=== PATIENT | male | born 1980 | race Caucasian/White ===

== ENCOUNTER 2020-08-25 10:00 | Emergency (ER) | payer SELFPAY ==
[~2020-08-25] VITALS: Ht 172.7 cm; Wt 102.1 kg
[~2020-08-25 10:00] MED LIST: ASPIRIN
[2020-08-25 10:02] VITALS: BP 147/97
--- NOTE | 2020-08-25 10:29 | NUR ---
39 YEAR OLD FEMALE COMPLAINS OF LLQ ABDOMINAL PAIN X YESTERDAY. PT DENIES N/V/D. PT DENIES BLOOD/PROBLEMS WITH DEFECATION/URINATION. PT AOX4, BREATHING EVEN AND UNLABORED, SKIN WARM AND DRY. BED IN LOWEST POSITION, LOCKED, SEMI-SHINE POSITION, BED RAIL UPX1. PMH - DENIES ALLERGIES - NKA
[2020-08-25 10:44] LABS: BASOPHILS # (AUTO) 0.1 K/uL (0.00-0.22); BASOPHILS % (AUTO) 0.5 % (0.0-2.0); EOSINOPHILS # (AUTO) 0.2 K/uL (0-0.4); EOSINOPHILS % (AUTO) 1.3 % (0.0-4.0); HEMATOCRIT 44.3 % (36-52); HEMOGLOBIN 15.3 g/dL (12.0-18.0); LYMPHOCYTES # (AUTO) 1.4 K/uL (2.0-11.5); MEAN CORPUSCULAR HEMOGLOBIN 31 pg (27-31); MEAN CORPUSCULAR HGB CONC 34 g/dL (33-37); MEAN CORPUSCULAR VOLUME 89.7 fL (80-94); MONOCYTES # (AUTO) 0.9 K/uL (0.8-1.0); MONOCYTES % (AUTO) 7.2 % (1.7-9.3); NEUTROPHILS # (AUTO) 10.4 K/uL (1.8-7.7); PLATELET COUNT (AUTO) 296 K/uL (140-450); RED BLOOD CELL COUNT(AUTO) 4.94 MIL/uL (4.20-6.10); RED CELL DISTRIBUTION WIDTH 13.1 % (11.6-13.7)
[2020-08-25] MEDS ORDERED: AMOX-1000 PO (11:46)
--- NOTE | 2020-08-25 11:59 | NUR ---
PT ALERT AND AWAKE, BREATHING EVEN AND UNLABORED. NO DISTRESS NOTED. WILL CONTINUE TO MONITOR.
[2020-08-25 12:37] LABS: PROTHROMBIN TIME 9.9 secs (10.8-13.4)
[2020-08-25 12:38] LABS: ANION GAP 12.6 (8-16); CARBON DIOXIDE 25.6 mmol/L (21-32); POTASSIUM 4.2 mmol/L (3.5-5.1)
[2020-08-25 12:39] LABS: ALBUMIN 4.2 g/dL (3.4-5.0); CREATININE 0.9 mg/dL (0.6-1.3); TOTAL BILIRUBIN 0.6 mg/dL (0.0-1.0)
[2020-08-25 12:53] VITALS: BP 147/97
--- NOTE | 2020-08-25 12:53 | NUR ---
Patient discharged with v/s stable. Written and verbal after care instructions given and explained. Patient alert, oriented and verbalized understanding of instructions. Ambulatory with steady gait. All questions addressed prior to discharge. ID band removed. Patient advised to follow up with PMD. Rx of AUGMENTIN 875MG-125MG PO BID [id number] given. Patient educated on indication of medication including possible reaction and side effects. Opportunity to ask questions provided and answered.
== END 2020-08-25 12:53 | disposition home or self-care (01) ==
LOC: MED 10:00
DX: K57.92 Diverticulitis of intestine, part unspecified, without perforation or abscess without bleeding (principal); F12.10 Cannabis abuse, uncomplicated
CPT/HCPCS: 36415; 80053; 81002; 83605; 85025; 85610; 85730; 87040; 99284